=== PATIENT | female | born 1950 | race Caucasian/White ===

== ENCOUNTER 2022-08-27 11:58 | Outpatient (CLI) | payer MEDICARE, BC, SELFPAY | END 2022-08-27 11:59 | disposition home or self-care (01) | LOC: NFLDREF 08-28 12:06 | PROVIDERS: Visit Provider Physician Assistant | DX: R30.0 Dysuria (principal); N39.0 Urinary tract infection, site not specified; N30.00 Acute cystitis without hematuria | CPT/HCPCS: 87086; 87186 ==

== ENCOUNTER 2023-09-19 09:57 | Outpatient (CLI) | payer MEDICARE, BC, SELFPAY | END 2023-09-19 09:58 | disposition home or self-care (01) | LOC: NFLDREF 09-21 06:49 | PROVIDERS: Visit Provider Nurse Practitioner Family | DX: N30.00 Acute cystitis without hematuria (principal) | CPT/HCPCS: 87086; 87186 ==